=== PATIENT | male | born 1985 | race Caucasian/White ===

== ENCOUNTER 2021-06-14 04:58 | Emergency (ER) | payer OTHER ==
[~2021-06-14] VITALS: Ht 165.1 cm; Wt 106.6 kg
[2021-06-14] MEDS ORDERED: ALBU6.7H9 IH (05:14)
--- NOTE | 2021-06-14 05:17 | NUR ---
Dr. Rodriguez at bedside for MSE.
[2021-06-14 05:26] LABS: HEMATOCRIT 47.8 % (36.7-47.1); MEAN CORPUSCULAR VOLUME 86.7 fL (73.0-96.2); PLATELET COUNT (AUTO) 395 K/uL (152-348)
[2021-06-14] MEDS ORDERED: ONDANSETRON 4 MG/2 ML VIAL IV ONE (05:30)
[2021-06-14] MEDS ORDERED: IV NORMAL SALINE 1000 ML BAG IV ONE (05:30)
[2021-06-14] MEDS ORDERED: FAMOTIDINE. 20 MG/2 ML VIAL IV ONE ×2 (05:30→05:32)
[2021-06-14] MEDS ORDERED: KETOROLAC TROMETHAMINE 15 MG INJ IVP ONE (05:30)
--- NOTE | 2021-06-14 05:30 | NUR ---
Xray at bedside.
[2021-06-14] MEDS ORDERED: KETOROLAC TROMETHAMINE 15 MG INJ ONE (05:32)
[2021-06-14] MEDS ORDERED: ONDANSETRON 4 MG/2 ML VIAL ONE (05:32)
[2021-06-14 05:37] LABS: BILIRUBIN,DIRECT 0.1 mg/dL (0.0-0.2); BILIRUBIN,TOTAL 0.3 mg/dL (0.2-1.0); CREATININE 0.9 mg/dL (0.6-1.3); POTASSIUM 3.6 mmol/L (3.5-5.1); TOTAL PROTEIN, SERUM 8.9 g/dL (6.4-8.2)
--- NOTE | 2021-06-14 06:01 | NUR ---
ultrasound at bedside.
[2021-06-14 06:15] LABS: BAND % (MANUAL) 2 % (0-10); LYMPHOCYTES % (MANUAL) 31 % (20-40); MONOCYTES % (MANUAL) 19 % (2-10); NEUTROPHILS % (MANUAL) 43 % (42-75)
[2021-06-14] MEDS ORDERED: FAMO-132 PO (06:38)
[2021-06-14] MEDS ORDERED: ONDA4TAB5 PO (06:38)
--- NOTE | 2021-06-14 07:30 | NUR ---
Patient discharged to home in stable condition. Written and verbal after care instructions given. Patient verbalizes understanding of instructions. Stressed follow up or return to ER for worsening s/s.PT WALKS IN STEADY GAIT, DENIES ANY N/V OR DIZZINESS. SAYS FEELS BETTER READY TO BE GO HOME
[2021-06-14 07:42] VITALS: BP 131/81
== END 2021-06-14 07:30 | disposition home or self-care (01) ==
LOC: ER 05:08
DX: B34.9 Viral infection, unspecified (principal); R11.2 Nausea with vomiting, unspecified; Z88.0 Allergy status to penicillin; J45.909 Unspecified asthma, uncomplicated; Z20.822 Contact with and (suspected) exposure to COVID-19
CPT/HCPCS: 71045; 76705; 80048; 80076; 83690; 85007; 85025; 87426; 93005; 96361; 96374; 96375; 99285; J1885; J2405; J3490; 70030-TC; A4663; J7030